=== PATIENT | male | born 1960 | race Caucasian/White ===

== ENCOUNTER 2020-08-03 13:31 | Emergency (ER) | payer OTHER, SELFPAY ==
--- NOTE | 2020-08-03 14:06 | ED_ITS ---
HPI - Extremity Injury (Lower) General Chief Complaint: Extremity Injury, Lower Stated Complaint: ROLLED RIGHT ANKLE YESTERDAY Time Seen by Provider: 08/03/20 13:37 Source: patient Mode of arrival: Ambulatory Limitations: no limitations History of Present Illness HPI Narrative: 60-year-old male nonsmoker with noncontributory medical history presents with a chief complaint of work related injury to his right foot and ankle suffered yesterday. He was stepping off of a block when he misjudged the distance and rolled his right ankle. He now has pain with minimal swelling and some discoloration over his lateral foot. His discomfort increases with ambulation and improves with rest. He denies any knee or hip pain. He denies any provoking events such as dizziness, weakness or lightheadedness. He denies any history of prior foot or ankle injuries. MD complaint: ankle injury and foot injury Onset (ago): day(s) Type of Injury: inversion Place: work Severity: moderate Relieving factors: rest Exacerbating factors: weight bearing, movement and palpation Context: fall and walking Associated symptoms: swelling and ambulatory Other symptoms: none Related Data Home Medications Medication Instructions Recorded Confirmed allopurinol 100 mg PO DAILY 08/03/20 08/03/20 Allergies Allergy/AdvReac Type Severity Reaction Status Date / Time No Known Drug Allergies Allergy Verified 08/03/20 14:11 Review of Systems Constitutional Constitutional: Denies chills, Denies fatigue, Denies fever(s), Denies frequent falls, Denies lethargy and Denies weakness Eyes Eyes: Denies change in vision, Denies eye discharge, Denies irritation and Denies loss of vision ENT Ears, Nose, Mouth, and Throat: Denies change in voice, Denies dizziness, Denies neck pain, Denies sore throat and Denies throat swelling Cardiovascular Cardiovascular: Denies chest pain, Denies irregular heart rhythm, Denies lightheadedness, Denies palpitations, Denies dyspnea, Denies dyspnea on exertion and Denies orthopnea Respiratory Respiratory: Denies cough, Denies dyspnea, Denies dyspnea on exertion and Denies wheezing Gastrointestinal Gastrointestinal: Denies abdominal pain, Denies change in bowel habits, Denies diarrhea, Denies nausea and Denies vomiting Musculoskeletal Musculoskeletal: Reports arthralgias, Reports joint swelling, Reports limited range of motion, Denies neck pain and Denies numbness Integumentary/Breasts Skin/Breast: Denies pruritus, Denies erythema, Denies rash and Denies wounds Neurologic Neurologic: Denies behavioral changes, Denies confusion, Denies dizziness, Denies frequent falls, Denies loss of vision, Denies numbness and Denies weakness Psychiatric Psychiatric: Denies anxiety, Denies behavioral changes, Denies confusion, Denies depression, Denies homicidal ideation and Denies suicidal ideation Endocrine Endocrine: Denies fatigue, Denies flushing and Denies palpitations Hematologic/Lymphatic Hematologic/Lymphatic: Denies easy bruising Allergic/Immunologic Allergic/Immunologic: Denies urticaria, Denies throat swelling and Denies wheezing Patient History Social History Smoking Status: Never smoker Smoking Status: Never smoker alcohol intake frequency: 0-2 drinks per day Substance Use Type: does not use Exam Narrative Exam Narrative: GEN: AOx3 and in mild distress EYES: Pupils are equal, round, and reactive to light and accommodation. Extraoccular muscles are intact bilaterally. There is no subconjunctival hemorrhage or exudate. CHEST: Lungs are clear to auscultation bilaterally and free of wheezes, rales, or rhonchi. Heart rate is regular rhythm, there are no murmurs, clicks, rubs, or gallops. There is no chest wall tenderness. ABD: Abdomen is soft and nontender. There is no guarding or rebound. Bowel sounds are normal in all 4 quadrants. There is no mass or organomegaly. EXT: Full but painful range of motion of right foot and ankle. Minimal tenderness to palpation on medial or lateral malleolus, no tenderness to palpation over anterior ankle overlying talus. No pain with squeeze test. Pain in the region of the anterior talofibular ligament with associated swelling and ecchymosis extending to an overlying the lateral float including 4th and 5th metatarsals. These injuries are closed, isolated neurovascularly intact. No pain to palpation of proximal fibula, knee or hip SKIN: Warm, pink, and dry. No erythema or rash Initial Vital Signs Initial Vital Signs: Vital Signs Temperature 98.7 F 08/03/20 14:08 Pulse Rate 80 08/03/20 14:08 Respiratory Rate 17 08/03/20 14:08 Blood Pressure 127/62 08/03/20 14:08 Pulse Oximetry 98 08/03/20 14:08 Course Orders Ordered: Discontinued Medications Ibuprofen (Ibuprofen 400 Mg Tablet) 800 mg PO NOW ONE Stop: 08/03/20 16:59 Last Admin: 08/03/20 17:10 Dose: 800 mg Documented by: [email or web address] MDM - Extremity Injury (Lower) Imaging Data Extremity x-ray #1: Radiologist's Impression: [address] [id number] ReportSigned Patient: Miguel Zendejas [facility]#: [id number]: 1960Acct:[id number]/Sex: 60 / MDate of Service: 08/03/20Loc: EDAccession Number: [id number] Procedure: XR ankle RT min 3V Ordering Provider: Juan José Aranda D.O. PROCEDURE: XR ANKLE RT MIN 3V INDICATIONS: pain after injury TECHNIQUE: 3 views of the ankle were acquired. COMPARISON: None. FINDINGS: Bones: No fractures or dislocations. Ankle mortise is normally aligned. No suspicious bony lesions. The talar dome demonstrates no lan abnormality. Soft tissues: Soft tissue swelling is seen, particularly laterally. IMPRESSION: Soft tissue swelling is seen, without an acute bony abnormality seen by plain film. If there is point tenderness (or other clinical suspicion for a fracture not seen on these images) then a dedicated CT or a short-term followup plain film series could be considered for further evaluation, as clinically appropriate. Dictated by: Ollie Bolaños M.D. on 08/03/2020 at 13:52 Approved by: Ollie Bolaños M.D. on 08/03/2020 at 13:53 Extremity x-ray #2: Radiologist's Impression: [address] [id number] ReportSigned Patient: Miguel Zendejas [facility]#: [id number]: 1960Acct:[id number]/Sex: 60 / MDate of Service: 08/03/20Loc: EDAccession Number: [id number] Procedure: XR foot RT min 3V Ordering Provider: Juan José Aranda D.O. PROCEDURE: XR FOOT RT MIN 3V INDICATIONS: pain, swelling, color change after injury TECHNIQUE: 3 views of the foot were acquired. COMPARISON: [facility], CR, XR ANKLE RT MIN 3V, 08/03/2020, 14:07. FINDINGS: Bones: No fractures or dislocations. No suspicious bony lesions. Bipartite medial and lateral sesamoid bones can be seen. Age-appropriate bony degenerative changes are seen. Soft tissues: No tibiotalar joint effusion. Achilles tendon appears normal. IMPRESSION: No acute plain film abnormality can be seen. Dictated by: Ollie Bolaños M.D. on 08/03/2020 at 15:26 Approved by: Ollie Bolaños M.D. on 08/03/2020 at 15:26 Discharge Plan Departure Patient Disposition: Home Clinical Impression: Foot sprain Qualifiers: Encounter type: initial encounter Laterality: right Qualified Code(s): S93.601A - Unspecified sprain of right foot, initial encounter Instructions: DI for Foot Sprain Activity Restrictions/Additional Instructions: *You have been diagnosed with [foot sprain without evidence of fracture] *What to do: *Take medications as directed *Follow up with your primary care provider in 2-3 days, call for an appointment. Let them know you were seen in the Emergency Department and that we ask that you be seen in follow up *Return to ER if you should have any new, worsening or concerning symptoms Prescriptions: No Action allopurinol 100 mg tablet 100 mg PO DAILY RF: 0 Stand Alone Forms: Work Release Note
[2020-08-03 14:08] VITALS: BP 127/62; PULSE 80; RESP 17; TEMP 37.1; O2SAT 98
--- NOTE | 2020-08-03 16:06 | DI.RAD.S_ITS ---
PROCEDURE: XR FOOT RT MIN 3V INDICATIONS: pain, swelling, color change after injury TECHNIQUE: 3 views of the foot were acquired. COMPARISON: [facility], CR, XR ANKLE RT MIN 3V, 08/03/2020, 14:07. FINDINGS: Bones: No fractures or dislocations. No suspicious bony lesions. Bipartite medial and lateral sesamoid bones can be seen. Age-appropriate bony degenerative changes are seen. Soft tissues: No tibiotalar joint effusion. Achilles tendon appears normal. IMPRESSION: No acute plain film abnormality can be seen. Dictated by: Ollie Bolaños M.D. on 08/03/2020 at 15:26 Approved by: Ollie Bolaños M.D. on 08/03/2020 at 15:26
[2020-08-03] MEDS: IBUPROFEN 400 MG TABLET 800 MG PO (17:10)
[2020-08-03 17:16] VITALS: BP 131/77; PULSE 69; RESP 17; O2SAT 99
== END 2020-08-03 17:19 | disposition home or self-care (01) ==
PROVIDERS: Emergency Provider Emergency Medicine
DX: S93.601A Unspecified sprain of right foot, initial encounter (principal); X50.1XXA Overexertion from prolonged static or awkward postures, initial encounter; Y99.0 Civilian activity done for income or pay
CPT/HCPCS: 73610; 73630; 99283